=== PATIENT | female | born 1935 | race Caucasian/White ===

== ENCOUNTER 2021-01-12 09:31 | Emergency (ER) | payer BC, OTHER ==
[2021-01-12 09:51] VITALS: TEMP 97.9; BMI 22.2
[2021-01-12] MEDS ORDERED: MECLIZINE HCL 12.5 MG TABLET PO ONE (10:49)
[2021-01-12 10:52] LABS: BASO % 0.4 % (0-2.0); EOS % 0.6 % (0-4.5); LYMPH % 14.5 % (8-40); MCH 30.2 pg (25.7-33.7); MCHC 34.2 g/dl (32.0-36.0); MEAN CELL VOLUME 88.3 fl (80-96); MEAN PLT VOLUME 9.8 fl (7.5-11.1); MONO % 7.1 % (3.8-10.2); NEUT % 77.4 % (42.8-82.8); PLATELET COUNT 151 K/MM3 (134-434); RDW 14.3 % (11.6-15.6); WHITE BLOOD COUNT 5.5 K/mm3 (4.0-10.0)
[2021-01-12] MEDS ORDERED: MECLIZINE HCL 12.5 MG TABLET ONE (10:53)
[2021-01-12 10:59] LABS: INR 0.97 (0.83-1.09); PROTHROMBIN TIME (PATIENT) 11.9 SEC (9.7-13.0)
[2021-01-12 11:02] LABS: ACTIVATED PTT 29.7 SECONDS (25.2-36.5)
[2021-01-12 11:13] LABS: CHLORIDE 106 mmol/L (98-107); SODIUM 140 mmol/L (136-145)
[2021-01-12 11:18] LABS: ALBUMIN 3.9 g/dl (3.4-5.0); CALCIUM 9.7 mg/dL (8.5-10.1)
[2021-01-12 11:19] LABS: ANION GAP 5 MMOL/L (8-16); BLOOD UREA NITROGEN 18.5 mg/dL (7-18); CO2 29 mmol/L (21-32); GLUCOSE,RANDOM 100 mg/dL (74-106); MAGNESIUM 2.2 mg/dL (1.8-2.4)
[2021-01-12 11:21] LABS: SGPT/ALT 20 U/L (13-61)
[2021-01-12 11:22] LABS: CREATININE 0.8 mg/dL (0.55-1.3); SGOT/AST 13 U/L (15-37)
[2021-01-12 11:23] LABS: BILIRUBIN,TOTAL 0.6 mg/dL (0.2-1); TOT PROT 7.1 g/dl (6.4-8.2)
[2021-01-12 11:24] LABS: ALK PHOS 85 U/L (45-117)
[2021-01-12 12:36] LABS: EPI CELLS 9 /uL (0-25.1); HYALINE CASTS 1 /uL (0-3.1); PH,URINE 7.5 (5.0-8.0); URINE APPEARANCE CLEAR; URINE BACTERIA 74 /uL (0-1359); URINE BILIRUBIN NEGATIVE (NEGATIVE); URINE COLOR YELLOW; URINE GLUCOSE (UA) NEGATIVE (NEGATIVE); URINE KETONE NEGATIVE (NEGATIVE); URINE LEUK ESTERASE 1+ (NEGATIVE); URINE NITRITE NEGATIVE (NEGATIVE); URINE PROTEIN NEGATIVE (NEGATIVE); URINE RBC 6 /uL (0-23.9); URINE UROBILINOGEN 0.2 mg/dL (0.2-1.0); URINE WBC 13 /uL (0-25.8)
[2021-01-12 13:39] VITALS: BP 137/92; PULSE 70
== END 2021-01-12 13:39 | disposition home or self-care (01) ==
LOC: JER 09:31
DX: R42 Dizziness and giddiness (principal)
CPT/HCPCS: 36415; 70450-TC; 71045-TC-FY; 80053; 81003; 82550; 83735; 84100; 84484; 85025; 85610; 85730; 87086; 93005; 93010; 99285-25

== ENCOUNTER 2021-01-28 16:42 | Inpatient (IN) | payer OTHER ==
[2021-01-28 17:02] VITALS: BMI 22.2
[2021-01-28] MEDS ORDERED: ACETAMINOPHEN 325 MG TABLET (FP) PO ONE (17:19)
[2021-01-28] MEDS ORDERED: DIPHTH,PERTUSS(ACELL),TET 0.5 ML DISP.SYRIN IM ONE ×2 (17:19→19:25)
[2021-01-28] MEDS ORDERED: ACETAMINOPHEN 325 MG TABLET (FP) ONE (19:25)
[2021-01-28] MEDS ORDERED: morphine CARPU-JECT 2 MG/1 ML DISP.SYRIN IVPUSH ONE (20:10)
[2021-01-28 20:11] LABS: BASO % 0.2 % (0-2.0); EOS % 0.1 % (0-4.5); LYMPH % 4.2 % (8-40); MCH 30.1 pg (25.7-33.7); MCHC 34.2 g/dl (32.0-36.0); MEAN CELL VOLUME 88.1 fl (80-96); MEAN PLT VOLUME 10.4 fl (7.5-11.1); MONO % 3.7 % (3.8-10.2); NEUT % 91.8 % (42.8-82.8); PLATELET COUNT 153 K/MM3 (134-434); RBC 4.31 M/mm3 (3.60-5.2); RDW 13.9 % (11.6-15.6)
[2021-01-28 20:20] LABS: PROTHROMBIN TIME (PATIENT) 12.3 SEC (9.7-13.0)
[2021-01-28 20:22] LABS: ACTIVATED PTT 27.6 SECONDS (25.2-36.5)
[2021-01-28] MEDS ORDERED: MORPHINE SULFATE 2 MG/ML VIAL ONE (20:24)
[2021-01-28 20:34] LABS: CHLORIDE 104 mmol/L (98-107); SODIUM 139 mmol/L (136-145)
[2021-01-28 20:36] LABS: ALBUMIN 4.4 g/dl (3.4-5.0); CALCIUM 9.7 mg/dL (8.5-10.1)
[2021-01-28 20:37] LABS: ANION GAP 9 MMOL/L (8-16); BLOOD UREA NITROGEN 22.4 mg/dL (7-18); CO2 25 mmol/L (21-32); GLUCOSE,RANDOM 116 mg/dL (74-106); MAGNESIUM 1.8 mg/dL (1.8-2.4)
[2021-01-28 20:40] LABS: CREATININE 0.8 mg/dL (0.55-1.3); PHOSPHOROUS 2.1 mg/dL (2.5-4.9); SGOT/AST 25 U/L (15-37); SGPT/ALT 28 U/L (13-61)
[2021-01-28 20:41] LABS: BILIRUBIN,TOTAL 0.7 mg/dL (0.2-1); TOT PROT 7.7 g/dl (6.4-8.2)
[2021-01-28 20:42] LABS: ALK PHOS 90 U/L (45-117)
[2021-01-28] MEDS ORDERED: POTASSIUM CHLORIDE TABS 20 MEQ TABLET.ER (FP) PO ONE ×2 (20:53→21:38)
[2021-01-28] MEDS ORDERED: MAGNESIUM SULF 50% (8.12 MEQ/2 ML-1 GM VIAL) IVPB ONE (20:54)
[2021-01-28] MEDS ORDERED: IBUPROFEN 600 MG TABLET (FP) PO ONE ×2 (21:01→22:48)
[2021-01-28] MEDS ORDERED: MAGNESIUM 1GM/D5W - 1 GM/100 ML IVPB IVPB ONE (21:38)
[2021-01-28] MEDS ORDERED: LIDOCAINE 5% TOPICAL PATCH ONE (22:49)
[2021-01-28] MEDS: LIDOCAINE 5% TOPICAL PATCH TP SCH (22:52)
[2021-01-28 22:55] LABS: ANISOCYTOSIS 0; MACROCYTOSIS 0; OVALOCYTE 1+; TEAR DROP CELLS 1+
[2021-01-28 23:07] LABS: URINE APPEARANCE CLEAR; URINE BILIRUBIN NEGATIVE (NEGATIVE); URINE COLOR YELLOW; URINE GLUCOSE (UA) NEGATIVE (NEGATIVE); URINE KETONE 1+ (NEGATIVE); URINE LEUK ESTERASE NEGATIVE (NEGATIVE); URINE NITRITE NEGATIVE (NEGATIVE); URINE PROTEIN NEGATIVE (NEGATIVE); URINE UROBILINOGEN 0.2 mg/dL (0.2-1.0)
[2021-01-29] MEDS: ACETAMINOPHEN 325 MG TABLET (FP) PO SCH ×5 (02:15→22:40)
[2021-01-29] MEDS: LIDOCAINE PATCH REMOVAL MC SCH ×2 (07:05→21:47)
[2021-01-29] MEDS: traMADol HCL 50 MG TABLET PO PRN ×2 (07:07→21:43)
[2021-01-29 08:39] LABS: ALBUMIN 3.6 g/dl (3.4-5.0); CALCIUM 8.9 mg/dL (8.5-10.1)
[2021-01-29 08:40] LABS: BLOOD UREA NITROGEN 17.9 mg/dL (7-18); MAGNESIUM 2.1 mg/dL (1.8-2.4)
[2021-01-29 08:43] LABS: CREATININE 0.7 mg/dL (0.55-1.3); PHOSPHOROUS 3.9 mg/dL (2.5-4.9)
[2021-01-29 08:45] LABS: BILIRUBIN,TOTAL 0.8 mg/dL (0.2-1); TOT PROT 6.4 g/dl (6.4-8.2)
[2021-01-29] MEDS: ENOXAPARIN NA (PORCINE) 30 MG/0.3 ML DISP.SYRIN SQ SCH (09:08)
[2021-01-29] MEDS: LIDOCAINE 5% TOPICAL PATCH TP SCH (09:08)
[2021-01-29] MEDS: metoPROLOL SUCCINATE 25 MG TAB.SR.24H (FP) PO SCH (09:08)
[2021-01-29] MEDS ORDERED: ENOXAPARIN NA (PORCINE) 40 MG/0.4 ML DISP.SYRIN SQ SCH (10:00)
[2021-01-29 11:16] LABS: HEMATOCRIT 34.8 % (32.4-45.2); HEMOGLOBIN 11.9 GM/dL (10.7-15.3); MCH 30.4 pg (25.7-33.7); MCHC 34.3 g/dl (32.0-36.0); MEAN CELL VOLUME 88.7 fl (80-96); MEAN PLT VOLUME 10.8 fl (7.5-11.1); PLATELET COUNT 138 K/MM3 (134-434); RBC 3.92 M/mm3 (3.60-5.2); RDW 14.2 % (11.6-15.6)
[2021-01-29] MEDS: POLYETHYLENE GLYCOL 3350 119 GM BTL PO SCH (11:38)
[2021-01-29] MEDS: DOCUSATE SODIUM 100 MG CAPSULE (FP) PO SCH ×2 (13:36→21:42)
[2021-01-30] MEDS: ACETAMINOPHEN 325 MG TABLET (FP) PO SCH ×4 (05:18→22:49)
[2021-01-30] MEDS: DOCUSATE SODIUM 100 MG CAPSULE (FP) PO SCH ×3 (05:19→21:16)
[2021-01-30] MEDS: traMADol HCL 50 MG TABLET PO PRN ×2 (05:19→21:16)
[2021-01-30] MEDS: metoPROLOL SUCCINATE 25 MG TAB.SR.24H (FP) PO SCH (09:02)
[2021-01-30] MEDS: LIDOCAINE 5% TOPICAL PATCH TP SCH (09:02)
[2021-01-30] MEDS: POLYETHYLENE GLYCOL 3350 119 GM BTL PO SCH (10:09)
[2021-01-30] MEDS: ENOXAPARIN NA (PORCINE) 30 MG/0.3 ML DISP.SYRIN SQ SCH (10:09)
[2021-01-30] MEDS: amLODIPine BESYLATE 2.5 MG TABLET (FP) PO SCH (10:09)
[2021-01-30] MEDS: LIDOCAINE PATCH REMOVAL MC SCH (21:20)
[2021-01-30] MEDS ORDERED: ATORVASTATIN CA 40 MG TABLET (FP) PO SCH (22:00)
[2021-01-31] MEDS: traMADol HCL 50 MG TABLET PO PRN (05:13)
[2021-01-31] MEDS: ACETAMINOPHEN 325 MG TABLET (FP) PO SCH ×4 (05:14→23:45)
[2021-01-31] MEDS: DOCUSATE SODIUM 100 MG CAPSULE (FP) PO SCH ×3 (05:16→22:22)
[2021-01-31 09:22] LABS: BASO % 0.4 % (0-2.0); EOS % 0.9 % (0-4.5); HEMATOCRIT 34.4 % (32.4-45.2); HEMOGLOBIN 11.7 GM/dL (10.7-15.3); LYMPH % 10.2 % (8-40); MCH 30.4 pg (25.7-33.7); MCHC 34.1 g/dl (32.0-36.0); MONO % 8.7 % (3.8-10.2); NEUT % 79.8 % (42.8-82.8); PLATELET COUNT 136 K/MM3 (134-434); RBC 3.86 M/mm3 (3.60-5.2); WHITE BLOOD COUNT 7.4 K/mm3 (4.0-10.0)
[2021-01-31 09:26] LABS: INR 1.08 (0.83-1.09)
[2021-01-31] MEDS: metoPROLOL SUCCINATE 25 MG TAB.SR.24H (FP) PO SCH (09:32)
[2021-01-31] MEDS: amLODIPine BESYLATE 2.5 MG TABLET (FP) PO SCH (09:32)
[2021-01-31] MEDS: LIDOCAINE 5% TOPICAL PATCH TP SCH (09:33)
[2021-01-31] MEDS: POLYETHYLENE GLYCOL 3350 119 GM BTL PO SCH (09:33)
[2021-01-31 10:12] LABS: ALBUMIN 3.1 g/dl (3.4-5.0); BLOOD UREA NITROGEN 20.7 mg/dL (7-18)
[2021-01-31 10:13] LABS: CALCIUM 9.2 mg/dL (8.5-10.1)
[2021-01-31 10:14] LABS: MAGNESIUM 2.1 mg/dL (1.8-2.4)
[2021-01-31 10:15] LABS: CREATININE 0.7 mg/dL (0.55-1.3)
[2021-01-31 10:16] LABS: BILIRUBIN,TOTAL 0.9 mg/dL (0.2-1)
[2021-01-31] MEDS: ENOXAPARIN NA (PORCINE) 30 MG/0.3 ML DISP.SYRIN SQ SCH (10:16)
[2021-01-31] MEDS ORDERED: LACTATED RINGERS SOLUTION 1,000 ML/1,000 ML INFUS.BAG IV SCH (10:45)
[2021-01-31] MEDS ORDERED: ROCURONIUM BROMIDE 100 MG/10 ML VIAL ONE (14:08)
[2021-01-31] MEDS ORDERED: fentaNYL CITRATE 250 MCG/5 ML VIAL ONE (14:08)
[2021-01-31] MEDS ORDERED: SUCCINYLCHOLINE CHLORIDE 200 MG/10 ML SYRINGE ONE (14:08)
[2021-01-31] MEDS ORDERED: PROPOFOL 20 ML ONE ×2 (14:08)
[2021-01-31] MEDS ORDERED: MIDAZOLAM HCL 2 MG/2 ML SINGLE DOSE VIAL ONE (14:09)
[2021-01-31] MEDS ORDERED: ceFAZolin SODIUM 1 GM VIAL IVPB ONE (14:50)
[2021-01-31] MEDS ORDERED: LIDOCAINE HCL 1%, 10 MG/ML (20ML VIAL) ONE (16:03)
[2021-01-31] MEDS ORDERED: oxyCODONE HCL 5 MG TABLET PO PRN (17:19)
[2021-01-31] MEDS ORDERED: traMADol HCL 50 MG TABLET PO PRN (17:48)
[2021-01-31] MEDS ORDERED: ONDANSETRON 4 MG/2 ML VIAL IVPUSH PRN (17:50)
[2021-01-31] MEDS ORDERED: PROMETHAZINE HCL 25 MG/1 ML VIAL IVPUSH PRN (17:50)
[2021-01-31] MEDS: LIDOCAINE PATCH REMOVAL MC SCH (22:00)
[2021-01-31] MEDS: CEFAZOLIN 2 GM/D5W 2 GM/50 ML ML IVPB SCH (22:22)
[2021-01-31] MEDS: LACTATED RINGERS SOLUTION 1,000 ML/1,000 ML INFUS.BAG IV SCH (22:22)
[2021-01-31] MEDS: ATORVASTATIN CA 40 MG TABLET (FP) PO SCH (22:22)
[2021-01-31] MEDS ORDERED: CEFAZOLIN 2 GM/D5W 2 GM/50 ML ML IVPB SCH (23:00)
[2021-02-01] MEDS: LACTATED RINGERS SOLUTION 1,000 ML/1,000 ML INFUS.BAG IV SCH ×2 (02:42→15:57)
[2021-02-01] MEDS: CEFAZOLIN 2 GM/D5W 2 GM/50 ML ML IVPB SCH (06:13)
[2021-02-01] MEDS: DOCUSATE SODIUM 100 MG CAPSULE (FP) PO SCH ×3 (06:13→22:04)
[2021-02-01] MEDS: ACETAMINOPHEN 325 MG TABLET (FP) PO SCH ×3 (06:13→17:29)
[2021-02-01 08:29] LABS: HEMATOCRIT 26.4 % (32.4-45.2); HEMOGLOBIN 9.1 GM/dL (10.7-15.3); MCH 30.7 pg (25.7-33.7); MCHC 34.4 g/dl (32.0-36.0); MEAN CELL VOLUME 89.4 fl (80-96); MEAN PLT VOLUME 10.4 fl (7.5-11.1); PLATELET COUNT 141 K/MM3 (134-434); RBC 2.95 M/mm3 (3.60-5.2); RDW 13.6 % (11.6-15.6); WHITE BLOOD COUNT 7.5 K/mm3 (4.0-10.0)
[2021-02-01 08:50] LABS: CALCIUM 8.3 mg/dL (8.5-10.1)
[2021-02-01 08:51] LABS: ALBUMIN 2.6 g/dl (3.4-5.0); BLOOD UREA NITROGEN 22.6 mg/dL (7-18)
[2021-02-01 08:56] LABS: BILIRUBIN,TOTAL 0.8 mg/dL (0.2-1); TOT PROT 5.1 g/dl (6.4-8.2)
[2021-02-01] MEDS: metoPROLOL SUCCINATE 25 MG TAB.SR.24H (FP) PO SCH (09:16)
[2021-02-01] MEDS: oxyCODONE HCL 5 MG TABLET PO PRN ×3 (09:16→23:40)
[2021-02-01] MEDS: amLODIPine BESYLATE 2.5 MG TABLET (FP) PO SCH (09:18)
[2021-02-01] MEDS: ENOXAPARIN NA (PORCINE) 40 MG/0.4 ML DISP.SYRIN SQ SCH (09:19)
[2021-02-01] MEDS: LIDOCAINE 5% TOPICAL PATCH TP SCH (09:19)
[2021-02-01] MEDS: POLYETHYLENE GLYCOL 3350 119 GM BTL PO SCH (09:19)
[2021-02-01] MEDS ORDERED: ENOXAPARIN NA (PORCINE) 40 MG/0.4 ML DISP.SYRIN SQ SCH (10:00)
[2021-02-01] MEDS ORDERED: POTASSIUM CHLORIDE TABS 20 MEQ TABLET.ER (FP) PO ONE (11:11)
[2021-02-01 11:49] LABS: MAGNESIUM 1.8 mg/dL (1.8-2.4)
[2021-02-01] MEDS: LIDOCAINE PATCH REMOVAL MC SCH (22:04)
[2021-02-01] MEDS: ATORVASTATIN CA 40 MG TABLET (FP) PO SCH (22:04)
[2021-02-02] MEDS: ACETAMINOPHEN 325 MG TABLET (FP) PO SCH ×5 (00:05→23:26)
[2021-02-02] MEDS: DOCUSATE SODIUM 100 MG CAPSULE (FP) PO SCH ×3 (05:49→23:19)
[2021-02-02 08:44] LABS: HEMATOCRIT 21.1 % (32.4-45.2); HEMOGLOBIN 7.4 GM/dL (10.7-15.3); MCH 31.1 pg (25.7-33.7); MEAN CELL VOLUME 88.9 fl (80-96); MEAN PLT VOLUME 9.7 fl (7.5-11.1); PLATELET COUNT 120 K/MM3 (134-434); RBC 2.37 M/mm3 (3.60-5.2); RDW 13.8 % (11.6-15.6); WHITE BLOOD COUNT 7.5 K/mm3 (4.0-10.0)
[2021-02-02 09:42] LABS: ALBUMIN 2.4 g/dl (3.4-5.0); BLOOD UREA NITROGEN 16.8 mg/dL (7-18); MAGNESIUM 1.8 mg/dL (1.8-2.4)
[2021-02-02 09:46] LABS: CREATININE 0.6 mg/dL (0.55-1.3)
[2021-02-02 09:47] LABS: CALCIUM 8.7 mg/dL (8.5-10.1); TOT PROT 4.9 g/dl (6.4-8.2)
[2021-02-02 09:56] LABS: BILIRUBIN,TOTAL 0.7 mg/dL (0.2-1)
[2021-02-02] MEDS: LIDOCAINE 5% TOPICAL PATCH TP SCH (10:05)
[2021-02-02] MEDS: ENOXAPARIN NA (PORCINE) 40 MG/0.4 ML DISP.SYRIN SQ SCH (10:06)
[2021-02-02] MEDS: metoPROLOL SUCCINATE 25 MG TAB.SR.24H (FP) PO SCH (10:06)
[2021-02-02] MEDS: amLODIPine BESYLATE 2.5 MG TABLET (FP) PO SCH (10:06)
[2021-02-02] MEDS: POLYETHYLENE GLYCOL 3350 119 GM BTL PO SCH ×2 (10:06→10:19)
[2021-02-02 15:21] LABS: BASO % 0.3 % (0-2.0); EOS % 0.7 % (0-4.5); HEMATOCRIT 21.9 % (32.4-45.2); HEMOGLOBIN 7.5 GM/dL (10.7-15.3); MCH 30.6 pg (25.7-33.7); MCHC 34.3 g/dl (32.0-36.0); MEAN CELL VOLUME 89.3 fl (80-96); MEAN PLT VOLUME 9.8 fl (7.5-11.1); MONO % 9.6 % (3.8-10.2); NEUT % 77.4 % (42.8-82.8); PLATELET COUNT 135 K/MM3 (134-434); RBC 2.46 M/mm3 (3.60-5.2); RDW 13.6 % (11.6-15.6); WHITE BLOOD COUNT 7.2 K/mm3 (4.0-10.0)
[2021-02-02] MEDS: oxyCODONE HCL 5 MG TABLET PO PRN (20:55)
[2021-02-02] MEDS: LIDOCAINE PATCH REMOVAL MC SCH (23:19)
[2021-02-02] MEDS: ATORVASTATIN CA 40 MG TABLET (FP) PO SCH (23:19)
[2021-02-03] MEDS: ACETAMINOPHEN 325 MG TABLET (FP) PO SCH ×3 (06:01→18:49)
[2021-02-03] MEDS: DOCUSATE SODIUM 100 MG CAPSULE (FP) PO SCH ×3 (06:02→21:38)
[2021-02-03 08:32] LABS: BASO % 0.3 % (0-2.0); EOS % 0.8 % (0-4.5); HEMATOCRIT 27.6 % (32.4-45.2); HEMOGLOBIN 9.6 GM/dL (10.7-15.3); LYMPH % 11.3 % (8-40); MCH 31.6 pg (25.7-33.7); MCHC 34.7 g/dl (32.0-36.0); MEAN CELL VOLUME 90.8 fl (80-96); MEAN PLT VOLUME 10.2 fl (7.5-11.1); MONO % 9.7 % (3.8-10.2); NEUT % 77.9 % (42.8-82.8); PLATELET COUNT 141 K/MM3 (134-434); RBC 3.04 M/mm3 (3.60-5.2); RDW 13.5 % (11.6-15.6); WHITE BLOOD COUNT 7.2 K/mm3 (4.0-10.0)
[2021-02-03 08:53] LABS: BLOOD UREA NITROGEN 13.9 mg/dL (7-18); CALCIUM 8.9 mg/dL (8.5-10.1)
[2021-02-03 08:54] LABS: MAGNESIUM 1.9 mg/dL (1.8-2.4)
[2021-02-03 08:55] LABS: ALBUMIN 2.4 g/dl (3.4-5.0)
[2021-02-03 08:56] LABS: BILIRUBIN,TOTAL 1.1 mg/dL (0.2-1); TOT PROT 5.2 g/dl (6.4-8.2)
[2021-02-03 08:57] LABS: CREATININE 0.5 mg/dL (0.55-1.3)
[2021-02-03] MEDS: LIDOCAINE 5% TOPICAL PATCH TP SCH (10:36)
[2021-02-03] MEDS: metoPROLOL SUCCINATE 25 MG TAB.SR.24H (FP) PO SCH (10:36)
[2021-02-03] MEDS: ENOXAPARIN NA (PORCINE) 40 MG/0.4 ML DISP.SYRIN SQ SCH (10:36)
[2021-02-03] MEDS: amLODIPine BESYLATE 2.5 MG TABLET (FP) PO SCH (10:36)
[2021-02-03] MEDS: POLYETHYLENE GLYCOL 3350 119 GM BTL PO SCH (11:00)
[2021-02-03] MEDS: ATORVASTATIN CA 40 MG TABLET (FP) PO SCH (21:32)
[2021-02-03] MEDS: LIDOCAINE PATCH REMOVAL MC SCH (21:38)
[2021-02-04] MEDS: ACETAMINOPHEN 325 MG TABLET (FP) PO SCH ×4 (00:33→17:20)
[2021-02-04] MEDS: DOCUSATE SODIUM 100 MG CAPSULE (FP) PO SCH ×3 (06:33→22:28)
[2021-02-04 07:45] LABS: BASO % 0.3 % (0-2.0); EOS % 0.6 % (0-4.5); HEMATOCRIT 27.9 % (32.4-45.2); HEMOGLOBIN 9.8 GM/dL (10.7-15.3); LYMPH % 13.1 % (8-40); MCH 31.5 pg (25.7-33.7); MCHC 35.3 g/dl (32.0-36.0); MEAN CELL VOLUME 89.5 fl (80-96); MEAN PLT VOLUME 9.3 fl (7.5-11.1); MONO % 9.5 % (3.8-10.2); NEUT % 76.5 % (42.8-82.8); PLATELET COUNT 167 K/MM3 (134-434); RBC 3.12 M/mm3 (3.60-5.2); RDW 13.5 % (11.6-15.6)
[2021-02-04 08:04] LABS: ALBUMIN 2.3 g/dl (3.4-5.0); BLOOD UREA NITROGEN 15.3 mg/dL (7-18); CALCIUM 8.9 mg/dL (8.5-10.1)
[2021-02-04 08:08] LABS: CREATININE 0.6 mg/dL (0.55-1.3)
[2021-02-04 08:09] LABS: BILIRUBIN,TOTAL 0.9 mg/dL (0.2-1); TOT PROT 5.1 g/dl (6.4-8.2)
[2021-02-04] MEDS: POLYETHYLENE GLYCOL 3350 119 GM BTL PO SCH (10:29)
[2021-02-04] MEDS: metoPROLOL SUCCINATE 25 MG TAB.SR.24H (FP) PO SCH (10:29)
[2021-02-04] MEDS: amLODIPine BESYLATE 2.5 MG TABLET (FP) PO SCH (10:29)
[2021-02-04] MEDS: LIDOCAINE 5% TOPICAL PATCH TP SCH (10:31)
[2021-02-04] MEDS: ENOXAPARIN NA (PORCINE) 40 MG/0.4 ML DISP.SYRIN SQ SCH (11:43)
[2021-02-04] MEDS: ATORVASTATIN CA 40 MG TABLET (FP) PO SCH (22:28)
[2021-02-04] MEDS: LIDOCAINE PATCH REMOVAL MC SCH (22:35)
[2021-02-05] MEDS: ACETAMINOPHEN 325 MG TABLET (FP) PO SCH ×4 (00:10→17:30)
[2021-02-05] MEDS: DOCUSATE SODIUM 100 MG CAPSULE (FP) PO SCH ×3 (06:29→21:18)
[2021-02-05 08:46] LABS: BASO % 0.5 % (0-2.0); EOS % 0.6 % (0-4.5); HEMATOCRIT 26.8 % (32.4-45.2); HEMOGLOBIN 9.3 GM/dL (10.7-15.3); LYMPH % 11.8 % (8-40); MCH 31.6 pg (25.7-33.7); MCHC 34.9 g/dl (32.0-36.0); MEAN CELL VOLUME 90.6 fl (80-96); MEAN PLT VOLUME 8.9 fl (7.5-11.1); MONO % 10.8 % (3.8-10.2); NEUT % 76.3 % (42.8-82.8); PLATELET COUNT 202 K/MM3 (134-434); RBC 2.95 M/mm3 (3.60-5.2); RDW 13.4 % (11.6-15.6); WHITE BLOOD COUNT 6.7 K/mm3 (4.0-10.0)
[2021-02-05] MEDS: POLYETHYLENE GLYCOL 3350 119 GM BTL PO SCH ×2 (10:00→10:08)
[2021-02-05] MEDS: LIDOCAINE 5% TOPICAL PATCH TP SCH (10:00)
[2021-02-05] MEDS: amLODIPine BESYLATE 2.5 MG TABLET (FP) PO SCH (10:01)
[2021-02-05] MEDS: ENOXAPARIN NA (PORCINE) 40 MG/0.4 ML DISP.SYRIN SQ SCH (10:01)
[2021-02-05] MEDS: metoPROLOL SUCCINATE 25 MG TAB.SR.24H (FP) PO SCH (10:01)
[2021-02-05] MEDS: ATORVASTATIN CA 40 MG TABLET (FP) PO SCH (21:18)
[2021-02-05] MEDS: LIDOCAINE PATCH REMOVAL MC SCH (21:26)
[2021-02-06] MEDS: ACETAMINOPHEN 325 MG TABLET (FP) PO SCH ×4 (00:10→18:08)
[2021-02-06] MEDS: DOCUSATE SODIUM 100 MG CAPSULE (FP) PO SCH ×2 (06:18→14:25)
[2021-02-06 08:34] LABS: BASO % 0.4 % (0-2.0); EOS % 0.5 % (0-4.5); HEMATOCRIT 27.4 % (32.4-45.2); HEMOGLOBIN 9.6 GM/dL (10.7-15.3); MCH 31.5 pg (25.7-33.7); MCHC 35.1 g/dl (32.0-36.0); MEAN CELL VOLUME 89.6 fl (80-96); MEAN PLT VOLUME 8.7 fl (7.5-11.1); MONO % 9.5 % (3.8-10.2); NEUT % 76.6 % (42.8-82.8); PLATELET COUNT 224 K/MM3 (134-434); RBC 3.06 M/mm3 (3.60-5.2); RDW 13.4 % (11.6-15.6); WHITE BLOOD COUNT 6.7 K/mm3 (4.0-10.0)
[2021-02-06] MEDS ORDERED: PT OWN MED DRAWER 7, Y5N ONE (10:11)
[2021-02-06] MEDS: amLODIPine BESYLATE 2.5 MG TABLET (FP) PO SCH (10:20)
[2021-02-06] MEDS: metoPROLOL SUCCINATE 25 MG TAB.SR.24H (FP) PO SCH (10:20)
[2021-02-06] MEDS: LIDOCAINE 5% TOPICAL PATCH TP SCH (10:20)
[2021-02-06] MEDS: ENOXAPARIN NA (PORCINE) 40 MG/0.4 ML DISP.SYRIN SQ SCH (10:21)
[2021-02-06] MEDS: POLYETHYLENE GLYCOL 3350 119 GM BTL PO SCH (10:21)
[2021-02-06 14:44] VITALS: BP 127/59; PULSE 80; TEMP 98.3
[2021-02-06] MEDS ORDERED: MELATONIN 1 MG TABLET PO SCH (22:00)
== END 2021-02-06 21:00 | DRG 522 ==
LOC: JER 16:42 → JERBED 18:31 → J4W 01-29 03:57 → J6S 01-31 18:27
PROVIDERS: ADMIT Hospitalist; ATTEND Nurse Practitioner Acute Care
PROC: 0PSJ04Z Reposition Left Radius with Internal Fixation Device, Open Approach (ICD-10-PCS; principal; 2021-01-28)
PROC: 0SRS0JA Replacement of Left Hip Joint, Femoral Surface with Synthetic Substitute, Uncemented, Open Approach (ICD-10-PCS; 2021-01-28)
DX: S72.092A Other fracture of head and neck of left femur, initial encounter for closed fracture (principal); S52.592A Other fractures of lower end of left radius, initial encounter for closed fracture; S52.692A Other fracture of lower end of left ulna, initial encounter for closed fracture; D62 Acute posthemorrhagic anemia; I50.30 Unspecified diastolic (congestive) heart failure; S60.212A Contusion of left wrist, initial encounter; W18.39XA Other fall on same level, initial encounter; Y92.098 Other place in other non-institutional residence as the place of occurrence of the external cause; I10 Essential (primary) hypertension; E78.5 Hyperlipidemia, unspecified; D72.829 Elevated white blood cell count, unspecified; E87.6 Hypokalemia; M50.321 Other cervical disc degeneration at C4-C5 level; K21.9 Gastro-esophageal reflux disease without esophagitis; I11.0 Hypertensive heart disease with heart failure; H81.10 Benign paroxysmal vertigo, unspecified ear; R26.2 Difficulty in walking, not elsewhere classified; R55 Syncope and collapse
CPT/HCPCS: 36415; 36430; 36511; 70450-TC; 71045-TC-FY; 72125-TC; 73030-TC-LT-FY; 73070-TC-LT-FY; 73090-TC-LT-FY; 73110-TC-LT-FY; 73502-TC-LT-FY; 73523-TC-FY; 76000-TC-FY; 80048; 80053; 80061; 81003; 82550; 82962; 83036; 83721; 83735; 84100; 84443; 84484; 85025; 85027; 85610; 85730; 86850; 86900; 86901; 86922; 87086; 88305-TC; 88311-TC; 90715; 93005; 93010; 94010; 94760; 97116-GP; 97162-GP; 99285-25; C9803; P9038; P9058; U0003; U0005

== ENCOUNTER 2022-02-06 12:27 | Inpatient (IN) | payer OTHER ==
[2022-02-06] MEDS ORDERED: ACETAMINOPHEN 500 MG TABLET (FP) PO ONE (13:36)
[2022-02-06] MEDS ORDERED: ACETAMINOPHEN 325 MG TABLET (FP) ONE (13:41)
[2022-02-06 16:45] LABS: BASO % 0.1 % (0-2.0); EOS % 0.2 % (0-4.5); HEMATOCRIT 33.3 % (32.4-45.2); HEMOGLOBIN 11.4 GM/dL (10.7-15.3); LYMPH % 5.7 % (8-40); MCH 30.6 pg (25.7-33.7); MCHC 34.2 g/dl (32.0-36.0); MEAN CELL VOLUME 89.5 fl (80-96); MEAN PLT VOLUME 9.9 fl (7.5-11.1); MONO % 5.5 % (3.8-10.2); NEUT % 88.5 % (42.8-82.8); PLATELET COUNT 126 10^3/uL (134-434); RBC 3.71 M/mm3 (3.60-5.2)
[2022-02-06 17:13] LABS: CALCIUM 9.8 mg/dL (8.5-10.1)
[2022-02-06 17:14] LABS: ALBUMIN 3.7 g/dl (3.4-5.0); BLOOD UREA NITROGEN 17.6 mg/dL (7-18)
[2022-02-06 17:17] LABS: CREATININE 0.7 mg/dL (0.55-1.3)
[2022-02-06 17:18] LABS: TOT PROT 6.4 g/dl (6.4-8.2)
[2022-02-06 17:19] LABS: BILIRUBIN,TOTAL 0.7 mg/dL (0.2-1)
[2022-02-06] MEDS ORDERED: morphine CARPU-JECT 2 MG/1 ML DISP.SYRIN IVPUSH ONE (19:51)
[2022-02-06] MEDS ORDERED: ACETAMINOPHEN 1000 MG/100 ML BAG IVPB PRN (20:05)
[2022-02-06 21:09] LABS: EPI CELLS 4 /uL (0-25.1); HYALINE CASTS 0 /uL (0-3.1); PH,URINE 6.5 (5.0-8.0); URINE APPEARANCE CLEAR; URINE BACTERIA 33 /uL (0-1359); URINE BILIRUBIN NEGATIVE (NEGATIVE); URINE COLOR YELLOW; URINE GLUCOSE (UA) NEGATIVE (NEGATIVE); URINE KETONE 1+ (NEGATIVE); URINE LEUK ESTERASE TRACE (NEGATIVE); URINE NITRITE NEGATIVE (NEGATIVE); URINE PROTEIN NEGATIVE (NEGATIVE); URINE RBC 12 /uL (0-23.9); URINE UROBILINOGEN 0.2 mg/dL (0.2-1.0); URINE WBC 40 /uL (0-25.8)
[2022-02-06] MEDS ORDERED: ATORVASTATIN CA 40 MG TABLET (FP) ONE (22:01)
[2022-02-06] MEDS ORDERED: ENOXAPARIN NA (PORCINE) 40 MG/0.4 ML DISP.SYRIN SQ ONE (22:02)
[2022-02-06] MEDS ORDERED: DOCUSATE SODIUM 100 MG CAPSULE (FP) PO ONE (22:02)
[2022-02-06] MEDS: ENOXAPARIN NA (PORCINE) 40 MG/0.4 ML DISP.SYRIN SQ SCH (22:11)
[2022-02-06] MEDS: DOCUSATE SODIUM 100 MG CAPSULE (FP) PO SCH (22:11)
[2022-02-06] MEDS: ATORVASTATIN CA 40 MG TABLET (FP) PO SCH (22:11)
[2022-02-07 01:47] VITALS: BMI 21.1
[2022-02-07] MEDS: DOCUSATE SODIUM 100 MG CAPSULE (FP) PO SCH ×3 (05:54→21:18)
[2022-02-07 08:53] LABS: BASO % 0.4 % (0-2.0); EOS % 1.3 % (0-4.5); HEMATOCRIT 32.5 % (32.4-45.2); LYMPH % 8.7 % (8-40); MCH 30.3 pg (25.7-33.7); MCHC 33.9 g/dl (32.0-36.0); MEAN CELL VOLUME 89.3 fl (80-96); MEAN PLT VOLUME 10.3 fl (7.5-11.1); MONO % 7.2 % (3.8-10.2); NEUT % 82.4 % (42.8-82.8); PLATELET COUNT 137 10^3/uL (134-434); RBC 3.64 M/mm3 (3.60-5.2); RDW 13.7 % (11.6-15.6); WHITE BLOOD COUNT 9.5 K/mm3 (4.0-10.0)
[2022-02-07 09:12] LABS: BLOOD UREA NITROGEN 17.6 mg/dL (7-18); CALCIUM 9.3 mg/dL (8.5-10.1)
[2022-02-07 09:13] LABS: ALBUMIN 3.4 g/dl (3.4-5.0); MAGNESIUM 2.2 mg/dL (1.8-2.4)
[2022-02-07 09:15] LABS: CREATININE 0.7 mg/dL (0.55-1.3)
[2022-02-07 09:17] LABS: TOT PROT 6.3 g/dl (6.4-8.2)
[2022-02-07] MEDS: ENOXAPARIN NA (PORCINE) 40 MG/0.4 ML DISP.SYRIN SQ SCH (10:09)
[2022-02-07] MEDS: metoPROLOL SUCCINATE 25 MG TAB.SR.24H (FP) PO SCH (10:09)
[2022-02-07] MEDS: amLODIPine BESYLATE 5 MG TABLET (FP) PO SCH (10:09)
[2022-02-07] MEDS: ATORVASTATIN CA 40 MG TABLET (FP) PO SCH (21:18)
[2022-02-08] MEDS: DOCUSATE SODIUM 100 MG CAPSULE (FP) PO SCH ×3 (06:06→21:19)
[2022-02-08 08:12] LABS: BASO % 0.2 % (0-2.0); EOS % 2.6 % (0-4.5); HEMATOCRIT 30.2 % (32.4-45.2); HEMOGLOBIN 10.3 GM/dL (10.7-15.3); LYMPH % 10.3 % (8-40); MCHC 34.2 g/dl (32.0-36.0); MEAN CELL VOLUME 90.4 fl (80-96); MEAN PLT VOLUME 9.8 fl (7.5-11.1); MONO % 7.5 % (3.8-10.2); NEUT % 79.4 % (42.8-82.8); PLATELET COUNT 110 10^3/uL (134-434); RBC 3.33 M/mm3 (3.60-5.2); RDW 13.4 % (11.6-15.6); WHITE BLOOD COUNT 8.2 K/mm3 (4.0-10.0)
[2022-02-08] MEDS: ENOXAPARIN NA (PORCINE) 40 MG/0.4 ML DISP.SYRIN SQ SCH (09:22)
[2022-02-08] MEDS: metoPROLOL SUCCINATE 25 MG TAB.SR.24H (FP) PO SCH (09:22)
[2022-02-08] MEDS: amLODIPine BESYLATE 5 MG TABLET (FP) PO SCH (09:22)
[2022-02-08 09:29] LABS: CALCIUM 9.1 mg/dL (8.5-10.1)
[2022-02-08 09:30] LABS: ALBUMIN 3.2 g/dl (3.4-5.0); BLOOD UREA NITROGEN 16.2 mg/dL (7-18)
[2022-02-08 09:33] LABS: CREATININE 0.7 mg/dL (0.55-1.3); PHOSPHOROUS 2.4 mg/dL (2.5-4.9)
[2022-02-08 09:35] LABS: BILIRUBIN,TOTAL 0.8 mg/dL (0.2-1)
[2022-02-08] MEDS ORDERED: NAPH,MB-DB/K PH,MBDB POWDER PACKET PO ONE (12:44)
[2022-02-08] MEDS: ATORVASTATIN CA 40 MG TABLET (FP) PO SCH (21:19)
[2022-02-09] MEDS: DOCUSATE SODIUM 100 MG CAPSULE (FP) PO SCH ×3 (06:10→21:48)
[2022-02-09 09:03] LABS: BASO % 0.2 % (0-2.0); EOS % 1.2 % (0-4.5); HEMATOCRIT 27.8 % (32.4-45.2); HEMOGLOBIN 9.5 GM/dL (10.7-15.3); LYMPH % 9.6 % (8-40); MCH 30.6 pg (25.7-33.7); MCHC 34.1 g/dl (32.0-36.0); MEAN CELL VOLUME 89.7 fl (80-96); MEAN PLT VOLUME 9.9 fl (7.5-11.1); MONO % 7.3 % (3.8-10.2); NEUT % 81.7 % (42.8-82.8); PLATELET COUNT 108 10^3/uL (134-434); RDW 13.5 % (11.6-15.6); WHITE BLOOD COUNT 8.3 K/mm3 (4.0-10.0)
[2022-02-09 09:28] LABS: ALBUMIN 2.9 g/dl (3.4-5.0); CALCIUM 9.3 mg/dL (8.5-10.1)
[2022-02-09 09:32] LABS: CREATININE 0.7 mg/dL (0.55-1.3)
[2022-02-09 09:33] LABS: BILIRUBIN,TOTAL 1.1 mg/dL (0.2-1); TOT PROT 5.8 g/dl (6.4-8.2)
[2022-02-09] MEDS: amLODIPine BESYLATE 5 MG TABLET (FP) PO SCH (09:37)
[2022-02-09] MEDS: metoPROLOL SUCCINATE 25 MG TAB.SR.24H (FP) PO SCH (09:37)
[2022-02-09] MEDS: ENOXAPARIN NA (PORCINE) 40 MG/0.4 ML DISP.SYRIN SQ SCH (09:37)
[2022-02-09] MEDS ORDERED: POLYETHYLENE GLYCOL (HEALTHYLAX) 3350 17 GM PACKET PO SCH (10:15)
[2022-02-09] MEDS: ATORVASTATIN CA 40 MG TABLET (FP) PO SCH (21:48)
[2022-02-09] MEDS ORDERED: SENNOSIDES 8.6MG TABLET (FP) PO SCH (22:00)
[2022-02-09 23:21] VITALS: BP 136/59; PULSE 98; TEMP 98.3
== END 2022-02-09 22:30 | DRG 563 ==
LOC: JER 12:27 → JERBED 19:42 → J6S 02-07 00:12
PROVIDERS: ADMIT Internal Medicine; ATTEND Internal Medicine
DX: S82.141A Displaced bicondylar fracture of right tibia, initial encounter for closed fracture (principal); D72.829 Elevated white blood cell count, unspecified; I10 Essential (primary) hypertension; E78.5 Hyperlipidemia, unspecified; W19.XXXA Unspecified fall, initial encounter; Y93.9 Activity, unspecified; Y92.89 Other specified places as the place of occurrence of the external cause; Y99.9 Unspecified external cause status
CPT/HCPCS: 36415; 70450-TC; 71046-TC-FY; 72125-TC; 72170-TC-FY; 72192-TC; 73030-TC-RT-FY; 73502-TC-RT-FY; 73562-TC-RT-FY; 73590-TC-RT-FY; 73610-TC-LT-FY; 73630-TC-LT; 73700-TC-RT; 80053; 81003; 83735; 84100; 85025; 86850; 86900; 86901; 87040; 87086; 93005; 93010; 94010; 97116-GP; 97162-GP; 99285-25; C9803-CS; U0003; U0005

== ENCOUNTER 2022-07-30 10:43 | Emergency (ER) | payer OTHER ==
[2022-07-30] MEDS ORDERED: FAMOTIDINE 10 MG TABLET PO ONE (11:27)
[2022-07-30] MEDS ORDERED: MAG HYDROX/AL HYDROX/SIMETH -MYLANTA- ORAL SUSPENSION PO ONE (11:27)
[2022-07-30] MEDS ORDERED: ACETAMINOPHEN 500 MG TABLET (FP) PO ONE (11:27)
[2022-07-30 12:05] VITALS: BMI 23.0
[2022-07-30] MEDS ORDERED: MAG HYDROX/AL HYDROX/SIMETH 30 ML UNIT-DOSE CUP ONE (12:13)
[2022-07-30] MEDS ORDERED: FAMOTIDINE 10 MG TABLET ONE (12:13)
[2022-07-30] MEDS ORDERED: ACETAMINOPHEN 500 MG TABLET (FP) ONE (12:18)
[2022-07-30 12:52] LABS: BASO % 0.5 % (0-2.0); CALCIUM 9.9 mg/dL (8.5-10.1); EOS % 0.5 % (0-4.5); HEMATOCRIT 37.9 % (32.4-45.2); HEMOGLOBIN 12.4 GM/dL (10.7-15.3); LYMPH % 12.3 % (8-40); MCH 28.7 pg (25.7-33.7); MCHC 32.7 g/dl (32.0-36.0); MEAN CELL VOLUME 87.7 fl (80-96); MONO % 6.1 % (3.8-10.2); NEUT % 80.6 % (42.8-82.8); PLATELET COUNT 178 10^3/uL (134-434); RBC 4.32 M/mm3 (3.60-5.2); RDW 15.2 % (11.6-15.6); WHITE BLOOD COUNT 8.1 K/mm3 (4.0-10.0)
[2022-07-30 12:53] LABS: ALBUMIN 3.7 g/dl (3.4-5.0); BLOOD UREA NITROGEN 15.5 mg/dL (7-18); MAGNESIUM 1.8 mg/dL (1.8-2.4)
[2022-07-30 12:56] LABS: BILIRUBIN,TOTAL 0.4 mg/dL (0.2-1); CREATININE 0.8 mg/dL (0.55-1.3); TOT PROT 6.8 g/dl (6.4-8.2)
[2022-07-30 12:59] LABS: EPI CELLS 2 /uL (0-25.1); HYALINE CASTS 0 /uL (0-3.1); URINE APPEARANCE CLEAR; URINE BACTERIA 13 /uL (0-1359); URINE BILIRUBIN NEGATIVE (NEGATIVE); URINE COLOR YELLOW; URINE GLUCOSE (UA) NEGATIVE (NEGATIVE); URINE KETONE NEGATIVE (NEGATIVE); URINE LEUK ESTERASE 1+ (NEGATIVE); URINE NITRITE NEGATIVE (NEGATIVE); URINE PROTEIN NEGATIVE (NEGATIVE); URINE RBC 14 /uL (0-23.9); URINE UROBILINOGEN 0.2 mg/dL (0.2-1.0); URINE WBC 17 /uL (0-25.8)
[2022-07-30 13:01] LABS: N-TERMINAL BNP 327.8 pg/ml (5-450)
[2022-07-30 15:03] VITALS: BP 146/54; PULSE 68; RESP 18; TEMP 98.6
== END 2022-07-30 15:20 | disposition home or self-care (01) ==
LOC: JER 10:43
DX: N64.4 Mastodynia (principal)
CPT/HCPCS: 0241U-QW; 36415; 71045-TC-FY; 80053; 81003; 83735; 83880; 84484; 85025; 87086; 93005; 93010; 93971-TC; 99284-25